=== PATIENT | male | born 1965 | race Caucasian/White ===

== ENCOUNTER → 2018-04-08 | Outpatient (CLI) | payer OTHER ==
--- NOTE | 2018-04-08 17:52 | Diagnostic Imaging Report ---
RADIOGRAPH(S) OF THE ABDOMEN AND PELVIS, 2 view(s) HISTORY: DVT, possible IVC filter COMPARISON: None available. FINDINGS: No specific evidence of obstruction or ileus. No definite urinary tract calcification. A nonspecific small calcific density projects at the left lower quadrant the abdomen, possibly residual contrast within a colonic diverticulum. An IVC filter projects at the right side of L2. The bones are partially obscured by stool and overlying bowel gas. IMPRESSION: 1. Nonobstructive bowel gas pattern. 2. IVC filter at the level of L2. Signed by: Dr. Tyler Goldman D.O., M.M.M. on 04/08/2018 5:48 PM
== END ==
LOC: RAD 16:58
PROVIDERS: ATTEND Internal Medicine Interventional Cardiology
DX: Z86.718 Personal history of other venous thrombosis and embolism (principal)
CPT/HCPCS: 74018